=== PATIENT | female | born 1985 | race Asian ===

== ENCOUNTER 2024-10-02 05:41 | Emergency (ER) | payer OTHER ==
[~2024-10-02] VITALS: Ht 149.9 cm; Wt 73.0 kg
[2024-10-02 05:46] VITALS: TEMP 98
[2024-10-02] MEDS: HYDROmorphone HCL 2 MG/ML SYRINGE IVP ONE (06:43)
[2024-10-02] MEDS: SODIUM CHLORIDE 0.9% 2,000 ML IV ONE (06:43)
[2024-10-02] MEDS: ONDANSETRON HCL 4 MG/2 ML VIAL IVP ONE (06:43)
[2024-10-02] MEDS: KETOROLAC TROMETHAMINE 30 MG/ML VIAL IVP ONE (06:43)
[2024-10-02 06:49] LABS: BASOPHILS % (AUTO) 0.6 % (0.0-2.0); EOSINOPHILS % (AUTO) 1.9 % (1.0-6.0); HEMATOCRIT 41.8 % (36-46); HEMOGLOBIN 13.8 g/dL (12.0-16.0); LYMPHOCYTES # (AUTO) 1.6 K/uL (1.0-4.8); LYMPHOCYTES % (AUTO) 12.7 % (22.0-44.0); MEAN CORPUSCULAR HEMOGLOBIN 28.3 pg (26.0-34.0); MEAN CORPUSCULAR HGB CONC 33.1 G/dL (31.0-37.0); MEAN CORPUSCULAR VOLUME 86 fL (80-100); MONOCYTES # (AUTO) 0.5 K/uL (0.1-1.0); MONOCYTES % (AUTO) 3.9 % (2.0-9.0); NEUTROPHILS # (AUTO) 9.9 K/uL (1.8-7.7); NEUTROPHILS % (AUTO) 80.9 % (40.0-70.0); PLATELET COUNT (AUTO) 279 K/uL (150-450); RED BLOOD CELL COUNT(AUTO) 4.89 MIL/uL (4.00-5.20); RED CELL DISTRIBUTION WIDTH 13.9 % (11.5-14.5); WHITE BLOOD COUNT (AUTO) 12.2 K/uL (4.5-11.0)
[2024-10-02 06:56] LABS: ANION GAP 6 mmol/L (8-16); CARBON DIOXIDE 30 mmol/L (22-29); CHLORIDE 102 mmol/L (98-107); CREATININE 0.87 mg/dL (0.60-1.30); GLOMERULAR FILTR. RATE CALC > 60 mL/min (>60); GLUCOSE,RANDOM 122 mg/dL (70-110); POTASSIUM 3.6 mmol/L (3.5-5.1); SODIUM SERUM 138 mmol/L (136-145); UREA NITROGEN, BLOOD 13 mg/dL (7-18)
[2024-10-02 06:57] LABS: LIPASE 46 U/L (16-77)
[2024-10-02 08:25] LABS: APPEARANCE,URINE CLEAR (CLEAR); BILIRUBIN,URINE NEGATIVE (NEGATIVE); COLOR,URINE COLORLESS (YELLOW); GLUCOSE, URINE (UA) NEGATIVE (NEGATIVE); KETONES,URINE NEGATIVE (NEGATIVE); LEUKOCYTE ESTERASE ,URINE SMALL (NEGATIVE); NITRATE,URINE NEGATIVE (NEGATIVE); OCCULT BLOOD,URINE LARGE (NEGATIVE); PROTEIN,URINE NEGATIVE (NEGATIVE); SPECIFIC GRAVITIY, URINE 1.011 (1.003-1.030); UROBILINOGEN,URINE <=1.0 mg/dL (<=1.0)
[2024-10-02 08:32] LABS: RBC,URINE 26-50 /HPF (0-2)
[2024-10-02 08:33] LABS: BACTERIA,URINE Few /HPF (None Seen); SQUAMOUS EPITHELIAL CELL,UR Rare /LPF (None Seen)
[2024-10-02] MEDS: HYDROCODONE/ACETAMINOPHEN 5-325 MG TABLET PO ONE (09:56)
[2024-10-02 10:58] VITALS: BP 143/84; PULSE 90; RESP 18; O2SAT 98
[2024-10-02] MEDS ORDERED: TAMS0.4C94 PO (11:38)
[2024-10-02] MEDS ORDERED: IBUP-1554 PO (11:38)
[2024-10-02] MEDS ORDERED: POLY119P3 PO (11:38)
[2024-10-02] MEDS ORDERED: HYDR-4062 PO (11:38)
== END 2024-10-02 12:08 | disposition home or self-care (01) ==
LOC: EMS 05:45
DX: N13.9 Obstructive and reflux uropathy, unspecified (principal); N20.9 Urinary calculus, unspecified
CPT/HCPCS: 99285; 74176; 96374; 96375; 96361; 80048; 81001; 83690; 84703; 85025; 36415; J1171; J1885; J2405; J7030